=== PATIENT | female | born 1950 | race Caucasian/White ===

== ENCOUNTER 2018-11-09 07:36 | Emergency (ER) | payer MEDICARE ==
--- OUTSIDE RECORDS SUMMARY | 2018-11-09 07:43 | XMS REPORT | Continuity of Care Document ---
:1950 External Reference #:[id number] Author Name Tarun Johnson, OD Address [address] [place] [address] Care Team Providers Name Role Phone Luis Fernando Snow MD Care Team Information Filler Shredder Unavailable Gwendolyn AJ, Luis Fernando Primary Care Physician Unavailable Payers Type Date Identification Numbers Payment Provider Subscriber Policy Number: [id number] [place] Trisha Thomas PayID: [id number] [address] [place] [address] Policy Number: [id number] [facility] Care Options Trisha Thomas PayID: [id number] [address] [place] [address] Advance Directives Description No Information Available Problems Date Description Provider Status Onset: 02/05/2015 Nuclear senile cataract Delonte Mcnair M.D. Active Onset: 05/10/2015 Internal hordeolum Tarun Hays O.D. Active Onset: 05/23/2015 Status Post Surgery Delonte Mcnair M.D. 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 Active Onset: 06/05/2015 Tear film insufficiency Tarun Hays O.D. Active Onset: 06/05/2015 Lens Replaced By Other Means Tarun Hays O.D. Active Onset: 06/28/2015 Hereditary corneal dystrophy Tarun Hays O.D. Active Onset: 07/18/2015 Keratoconjunctivitis sicca, not Delonte Mcnair M.D. Active specified as Sjogren's Onset: 07/25/2015 Chalazion Tarun Hays O.D. Active Onset: 07/27/2015 Myopia Tarun Hays O.D. Active Onset: 07/27/2015 Regular astigmatism Tarun Hays O.D. Active Onset: 07/27/2015 Presbyopia Tarun Hays O.D. Active Onset: 08/24/2015 Monocular esotropia Tarun Hays O.D. Active Onset: 08/29/2015 Dystrophy of anterior cornea Delonte Mcnair M.D. Active Onset: 12/24/2016 Benign neoplasm of eyelid including Delonte Mcnair M.D. Active canthus Onset: 12/24/2016 Vitreous degeneration Delonte Mcnair M.D. Active Onset: 12/24/2016 Presence of intraocular lens Delonte Mcnair M.D. Active Family History Date Family Member(s) Problem(s) Comments General Alzheimer's Disease General Cancer General Heart Disease General Grandparent, Aunt, Brother Father Cataract Father Cancer Father Diabetes Father High BP Mother Arthritis Mother Heart Disease Social History Type Date Description Comments Sex Unknown ETOH Use Currently consumes alcohol Tobacco Use Start: Unknown Patient has never smoked Smoking Status Reviewed: 10/12/18 Patient has never smoked Allergies, Adverse Reactions, Alerts Description No Known Drug Allergies Medications Medication Date Status Form Strength Qnty SIG Indications Ordering Provider Restasis 07/25/ Active Emulsion 0.05% 180via 1 drops Delonte 2014 ls both eyes Xu, twice a M.D. day Fosamax Plus D / Active Tablets 70-2800mg- Unknown 0000 Unit Klor-Con M20 / Active Tablets ER 20Meq Unknown 0000 Xanax / Active Tablets Unknown 0000 Aureliano 128 06/28/ Hx Solution 5% 15ml 1 drop 371.50 Tarun 2014 - both eyes Saúl, 08/24/ three O.D. 2015 times a day Tobradex 05/10/ Hx Ointment 0.3-0.1% 3.500g apply 11/19 373.12 Tarun 2014 - m strip of Saúl, 06/05/ ointment O.D. 2014 to the affected area three times a day for 2 weeks Vigamox 05/04/ Hx Solution 0.5% 3ml 1 drop Delonte 2014 - drops Xu, 06/05/ right eye M.D. 2014 four times a day Ketorolac 05/04/ Hx Solution 0.5% 10ml 1 drops Delonte Tromethamine 2014 - right eye Xu, 06/28/ twice a M.D. 2014 day Pred Forte 05/04/ Hx Suspension 1% 10ml 1 drops Delonte 2014 - right eye Mcnair, 06/28/ four times M.D. 2014 a day Immunizations Description No Information Available Vital Signs Date Vital Result Comment 07/14/2018 2:44pm Intraocular Pressure Right Eye 14 mmHg Intraocular Pressure Left Eye 14 mmHg 12/24/2016 3:17pm Intraocular Pressure Right Eye 17 mmHg Intraocular Pressure Left Eye 17 mmHg 08/29/2015 9:50am Intraocular Pressure Right Eye 15 mmHg Intraocular Pressure Left Eye 15 mmHg 06/28/2015 10:19am Intraocular Pressure Right Eye 18 mmHg Intraocular Pressure Left Eye 18 mmHg 05/28/2015 11:41am Intraocular Pressure Right Eye 12 mmHg 05/23/2015 10:13am Intraocular Pressure Right Eye 19 mmHg 02/05/2015 10:56am Intraocular Pressure Right Eye 18 mmHg Intraocular Pressure Left Eye 18 mmHg Results Description No Information Available Procedures Date Code Description Status 07/14/2018 77510 Fundus Photography W/Interpretation & Report Completed 07/14/2018 01324 Eye Exam Est Intermediate Completed 11/26/2017 15369 Remove Secondary Cataract, Laser (Yag) Completed 12/24/2016 54750 External Photography W/Interpretation & Report Completed 12/24/2016 81200 Ophthalmoscopy Subsequent Completed 12/24/2016 56279 Eye Exam Est Comprehensive Completed 12/14/2015 83092 Refraction Completed 07/18/2015 02278 Close Lacrimal Punctum, Plug Completed 05/29/2015 71874 Extracapsular Cataract Extraction W/Intraocular Lens Completed 05/28/2015 53837 Correct Trichiasis, Epilation By Forceps Only Completed 05/22/2015 54534 Extracapsular Cataract Extraction W/Intraocular Lens Completed 05/04/2015 07878 Ophthalmic Biometry By Partial Coherence Interferometry Completed W/Intra 05/04/2015 12188 Eye Exam Est Intermediate Completed 02/09/2015 42164 Eye Exam Est Intermediate Completed 02/05/2015 66069 Ophthalmic Biometry By Partial Coherence Interferometry Completed W/Intra 02/05/2015 34834 Eye Exam New Comprehensive Completed Encounters Type Date Location Provider Dx Diagnosis Office Visit 07/30/2017 Main Office Delonte Mcnair, H26.491 Other secondary 2:15p M.D. cataract, right eye Office Visit 05/26/2017 Main Office Tarun Johnson, OD H00.11 Chalazion right 11:30a upper eyelid H16.223 Keratoconjunct sicca, not specified as Sjogren's, bilateral Office Visit 12/14/2015 9:15a Main Office Tarun Hays, H18.59 Other hereditary O.D. corneal dystrophies H16.223 Keratoconjunct sicca, not specified as Sjogren's, bilateral Z96.1 Presence of intraocular lens Office Visit 08/29/2015 9:30a Main Office Delonte Mcnair, H18.59 Other hereditary M.D. corneal dystrophies H50.011 Monocular esotropia, right eye Office Visit 08/24/2015 8:30a Main Office Tarun Hays, H16.223 Keratoconjunct O.D. sicca, not specified as Sjogren's, bilateral Office Visit 07/27/2015 1:15p Main Office Tarun Hays, H16.223 Keratoconjunct O.D. sicca, not specified as Sjogren's, bilateral Office Visit 07/25/2015 11:30a Main Office Tarun Hays, H16.223 Keratoconjunct O.D. sicca, not specified as Sjogren's, bilateral H00.11 Chalazion right upper eyelid Office Visit 06/13/2015 3:15p Main Office Delonte Mcnair, 375.15 Dry Eye Syndrome M.D. Tear Film Insufficiency Unspec Office Visit 05/28/2015 11:30a Main Office Tarun Hasy, 374.05 Trichiasis W/O O.D. Entropion Office Visit 05/10/2015 11:15a Main Office Tarun Hays, 373.12 Hordeolum Internum O.D. Plan of Treatment 10/12/2018 - Tarun Johnson, ODH16.223 Keratoconjunctivitis sicca, not specified as Sjogren's, bilaH16.142 Punctate keratitis, left eyeFollow up:as scheduled f/ u PRN
[2018-11-09 07:50] VITALS: BP 140/73
[2018-11-09] MEDS ORDERED: Amoxicillin/Clavulanate TAB* 875 MG PO ONE (08:00)
--- NOTE | 2018-11-09 08:10 | ED ---
Respiratory - HPI Summary HPI Summary: 68 yo W female presents with cough with pleuritic CP associated with productive cough x 5 days, f/c, started with URI sx of nasal congestion, and non- productive cough but now feels like it is in the chest. States she is traveling in 2 days, has dextro-scoliosis, and has crowding of left side of chest, with increased propensity to get PNA which she wants to avoids. Thends ot get more seious bronchitis about 2x/year. - History of Current Complaint Chief Complaint: UCGeneralIllness Stated Complaint: COUGH HEAD/CHEST CONGESTION Hx Obtained From: Patient Onset/Duration: Sudden Onset Initial Severity: Moderate Pain Intensity: 0 Character: Cough (Productive) - Allergy/Home Medications Allergies/Adverse Reactions: Allergies Allergy/AdvReac Type Severity Reaction Status Date / Time SEASONAL ALLERGIES Allergy SNEEZING, Uncoded 05/29/15 08:12 COUGH, ITCHY EYES PMH/Surg Hx/FS Hx/Imm Hx Endocrine/Hematology History: Denies: Hx Anticoagulant Therapy Cardiovascular History: Reports: Other Cardiovascular Problems/Disorders - 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 Respiratory History: Reports: Other Respiratory Problems/Disorders - HX OF PNEUMONIA SEVERAL TIMES, Denies: Hx Asthma GI History: Comment Only: Other GI Disorders - "large cyst on my liver" History: Reports: Other Problems/Disorders - PELVIC PROLAPSE - NO PROBLEMS - HAVE NOT USED PESSARY YET Musculoskeletal History: Reports: Hx Osteoporosis - FOZAMAX 5-6 YEARS, Other Musculoskeletal History - MINOR DISCOMFORT TO BACK Denies: Hx Rheumatoid Arthritis Comment Only: Hx Back Problems - severe scoliosis Sensory History: Reports: Hx Cataracts - BILATERAL, Hx Contacts or Glasses - GLASSES Denies: Hx Hearing Aid Opthamlomology History: Reports: Hx Cataracts - BILATERAL, Hx Contacts or Glasses - GLASSES Psychiatric History: Reports: Hx Anxiety - MODERATE - Cancer History Hx Chemotherapy: No Hx Radiation Therapy: No - Surgical History Surgery Procedure, Year, and Place: 2003 ARTHROSCOPIC MENISCUS REPAIR RIGHT KNEES, [facility] (SEDATIVE). 1982 DILATION AND CURETTAGE, [facility] [place] (NO ANESTHESIA) SEDATIVE. 1954 TONSILLECTOMY. 2012 COLONOSCOPY, [facility] [place] Hx Anesthesia Reactions: Yes - N/V WITH TONSILLECTOMY, SEDATIVE WITH OTHERS Infectious Disease History: No Infectious Disease History: Denies: Traveled Outside the [place] in Last 30 Days - Social History Alcohol Use: Daily Alcohol Amount: 1 GLASS WINE Substance Use Type: Reports: None Smoking Status (MU): Never Smoked Tobacco Review of Systems Constitutional: Other Positive: Fever Eyes: Negative Positive: Nasal Discharge Cardiovascular: Negative Positive: Cough Gastrointestinal: Negative Musculoskeletal: Negative Skin: Negative Neurological: Negative Psychological: Normal All Other Systems Reviewed And Are Negative: Yes Physical Exam - Summary Physical Exam Summary: Vital Signs Reviewed: Yes Skin: Positive: Warm Head/Face: Positive: Normal Head/Face Inspection Eyes: Positive: Normal ENT: Positive: Normal ENT inspection Neck: Positive: Supple Respiratory/Lung Sounds: Positive: diffuse rhonchi w/o wheezing, crackles Cardiovascular: Positive: Normal, RRR, S1, S2 Abdomen Description: Positive: Nontender Musculoskeletal: Positive: Normal Neurological: Positive: Normal Psychiatric: Positive: Normal, Affect/Mood Appropriate Triage Information Reviewed: Yes Vital Signs On Initial Exam: Initial Vitals Temp Pulse Resp BP Pulse Ox 36.6 C 94 17 140/73 99 11/09/18 07:49 11/09/18 07:49 11/09/18 07:49 11/09/18 07:49 11/09/18 07:49 Diagnostics - Vital Signs Vital Signs Temp Pulse Resp BP Pulse Ox 11/09/18 07:49 36.6 C 94 17 140/73 99 - Laboratory Lab Statement: Any lab studies that have been ordered have been reviewed, and results considered in the medical decision making process. Disposition - Diagnoses Provider Diagnoses: Bronchitis, Scoliosis (and kyphoscoliosis), idiopathic Discharge - Sign-Out/Discharge Documenting (check all that apply): Patient Departure All imaging exams completed and their final reports reviewed: Yes - Discharge Plan Condition: Stable Disposition: HOME Prescriptions: Amoxicillin/Clavulanate TAB* [Augmentin TAB 875*] 875 mg PO BID 7 Days #14 tab Patient Education Materials: Acute Bronchitis (ED) Referrals: Luis Fernando Snow MD [Primary Care Provider] - - Billing Disposition and Condition Condition: STABLE Disposition: Home
== END 2018-11-09 08:09 | disposition home or self-care (01) ==
LOC: UCEAST 07:36
DX: J40 Bronchitis, not specified as acute or chronic (principal); M41.20 Other idiopathic scoliosis, site unspecified; Z91.09 Other allergy status, other than to drugs and biological substances
CPT/HCPCS: 99212; A9270-GY; G0463